=== PATIENT | male | born 1990 | race Caucasian/White ===

== ENCOUNTER 2016-10-04 08:13 | Outpatient (CLI) ==
[2016-05-12 12:55] VITALS: BMI 29.5
== END 2016-10-04 08:14 | disposition home or self-care (01) ==
LOC: AMBL 08:13
PROVIDERS: ATTEND Emergency Medicine
DX: S06.9X9A Unspecified intracranial injury with loss of consciousness of unspecified duration, initial encounter (principal); S01.01XA Laceration without foreign body of scalp, initial encounter; V43.62XA Car passenger injured in collision with other type car in traffic accident, initial encounter

== ENCOUNTER 2016-12-08 09:29 | Outpatient (RCR) ==
[2016-05-12 12:55] VITALS: BMI 29.5
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
== END 2016-12-09 ==
PROVIDERS: ATTEND Internal Medicine
DX: Z51.89 Encounter for other specified aftercare (principal); S06.9X0D Unspecified intracranial injury without loss of consciousness, subsequent encounter; V89.2XXD Person injured in unspecified motor-vehicle accident, traffic, subsequent encounter

== ENCOUNTER 2017-09-25 02:18 | Emergency (ER) ==
[2017-09-25 02:42] VITALS: BP 136/81; TEMP 98.2; BMI 25.1
--- NOTE | 2017-09-25 03:34 | DI ---
EXAM: Right hand, three views, 09/25/2017 HISTORY: Trauma COMPARISON: None. FINDINGS / IMPRESSION: The visualized osseous structures appear intact. Anatomic alignment appears within normal limits. There is no evidence of fracture or dislocation. No acute osseous abnormality.
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
== END 2017-09-25 03:55 ==
LOC: ED 02:18
DX: F10.129 Alcohol abuse with intoxication, unspecified (principal); S60.511A Abrasion of right hand, initial encounter; W22.8XXA Striking against or struck by other objects, initial encounter
CPT/HCPCS: 36415; 80306; 80307; 99283